=== PATIENT | male | born 1985 | race Caucasian/White ===

== ENCOUNTER 2020-01-11 16:13 | Emergency (ER) | payer BC ==
[~2020-01-11] VITALS: Ht 172.7 cm; Wt 87.7 kg
[2020-01-11 16:17] VITALS: BP 142/82
== END 2020-01-11 16:38 | disposition home or self-care (01) ==
LOC: ER 16:13
DX: B34.9 Viral infection, unspecified (principal); Z20.828 Contact with and (suspected) exposure to other viral communicable diseases
CPT/HCPCS: 36415; 99282